=== PATIENT | male | born 1940 | race Caucasian/White ===

== ENCOUNTER 2022-03-15 10:35 | Observation (INO) ==
[~2022-03-15 10:35] MED LIST: ASPIRIN 325 MG TABLET PO ONE; DEXTROSE 5% NACL 0.45% 1,000 ML IV SCH; DIAZEPAM 5 MG TABLET PO ONE; MAGNESIUM SULF RIDER 2 GM/50 ML PREMIX IV PRN; POTASSIUM CHLORIDE RIDER 10 MEQ/100 ML PREMIX IV PRN; diphenhydrAMINE CAP 50 MG CAPSULE PO ONE
[2022-03-15 11:11] VITALS: BP 115/78
[2022-03-15] MEDS ORDERED: ALUMINUM/MAGNES/SIMETH MAX STR 30 ML UDCUP PO PRN (12:12)
[2022-03-15] MEDS ORDERED: MORPHINE 2 MG/1 ML SYRINGE IV PRN (12:12)
[2022-03-15] MEDS ORDERED: diphenhydrAMINE CAP 25 MG CAPSULE PO PRN (12:12)
[2022-03-15] MEDS ORDERED: MAGNESIUM SULF RIDER 4 GM/100 ML PREMIX IV PRN (12:12)
[2022-03-15] MEDS ORDERED: MAGNESIUM SULF RIDER 2 GM/50 ML PREMIX IV PRN (12:12)
[2022-03-15] MEDS ORDERED: DOCUSATE SODIUM 100 MG CAPSULE PO PRN (12:12)
[2022-03-15] MEDS ORDERED: PROMETHAZINE 25 MG TABLET PO PRN (12:12)
[2022-03-15] MEDS ORDERED: NICOTINE 21 MG/24 HR PATCH TRANSDERM PRN (12:12)
[2022-03-15] MEDS ORDERED: guaiFENesin/DM ER 600-30 MG TABLET PO PRN (12:12)
[2022-03-15] MEDS ORDERED: POTASSIUM CHLORIDE 20 MEQ TABLET PO PRN (12:12)
[2022-03-15] MEDS ORDERED: hydrALAZINE 20 MG/1 ML VIAL IV PRN (12:12)
[2022-03-15] MEDS ORDERED: ZALEPLON 5 MG CAPSULE PO PRN (12:12)
[2022-03-15] MEDS ORDERED: ONDANSETRON 4 MG/2 ML VIAL IV PRN (12:12)
[2022-03-15] MEDS ORDERED: ACETAMINOPHEN 325 MG TABLET PO PRN (12:12)
[2022-03-15] MEDS ORDERED: ALBUTEROL/IPRATROPIUM 3 ML NEB RESP TX PRN (12:40)
[2022-03-15] MEDS ORDERED: NITROGLYCERIN SL 0.4 MG TABLET SL PRN (12:41)
[2022-03-15 13:08] LABS: Basophils # 0.1 10*3/uL (0.0-0.2); Basophils % 0.8 % (0.0-0.8); Eosinophils # 0.1 10*3/uL (0.0-0.87); Eosinophils % 1.4 % (0.00-10.9); Hematocrit 43.5 VOL% (42.0-52.0); Hemoglobin 14.2 GM/DL (14.0-18.0); Immature Granulocytes % 0.3 %; Immature Granulocytes Absolute 0.02 #; Lymphocytes # 1.1 10*3/uL (1.4-4.0); Lymphocytes % 15.8 % (21.2-54.2); Mean Corpuscular HGB Conc 32.6 GM/DL (32-36); Mean Corpuscular Volume 86.1 FL (87-102); Mean Platelet Volume 10.6 FL (9.6-12.0); Monocytes # 0.5 10*3/uL (0.11-0.8); Monocytes % 6.3 % (1.7-12.7); Neutrophils % 75.4 % (38.7-73.9); Platelet Count 234 T/CUMM (130-400); Red Blood Count 5.05 MC/CUMM (3.8-5.5); Red Cell Distribution Width 14.3 % (9.3-17.3); White Blood Count 7.2 T/CUMM (4-12)
[2022-03-15 13:32] LABS: Albumin 3.3 G/DL (3.4-5.0); Bilirubin,Total 1.3 MG/DL (0.20-1.00); Calcium 8.6 MG/DL (8.5-10.1); Osmolality,Calculated 289.3 MOS/KG (273-304); Potassium 4.5 MMOL/L (3.5-5.1); Total Protein 6.6 G/DL (6.4-8.2)
[2022-03-15 13:59] LABS: Arterial Base Excess iSTAT -3 MMOL/L (-2.5-2.5); Arterial Bicarbonate iSTAT 20.2 MMOL/L (20-26); Arterial O2 Saturation iSTAT 95 % (95-100); Arterial PCO2 iSTAT 31 MM HG (35-48); Arterial PO2 iSTAT 72 MM HG (80-95); Arterial Total CO2 iSTAT 21 MMO/L (23-27); Arterial pH iSTAT 7.421 (7.35-7.45)
[2022-03-15] MEDS ORDERED: LEVOFLOXACIN INJ 750 MG/150 ML PREMIX IV SCH (15:00)
[2022-03-15] MEDS: FUROSEMIDE 40 MG/4 ML VIAL IV SCH (15:00)
[2022-03-15] MEDS ORDERED: RIVAROXABAN 10 MG TABLET PO SCH (17:00)
[2022-03-16 04:38] LABS: Basophils # 0.1 10*3/uL (0.0-0.2); Basophils % 0.7 % (0.0-0.8); Eosinophils # 0.3 10*3/uL (0.0-0.87); Eosinophils % 3.6 % (0.00-10.9); Hematocrit 42.6 VOL% (42.0-52.0); Hemoglobin 13.9 GM/DL (14.0-18.0); Immature Granulocytes % 0.2 %; Immature Granulocytes Absolute 0.02 #; Lymphocytes # 1.8 10*3/uL (1.4-4.0); Lymphocytes % 21.4 % (21.2-54.2); Mean Corpuscular HGB Conc 32.6 GM/DL (32-36); Mean Corpuscular Volume 85.7 FL (87-102); Mean Platelet Volume 10.9 FL (9.6-12.0); Monocytes # 0.8 10*3/uL (0.11-0.8); Monocytes % 9.7 % (1.7-12.7); Neutrophils % 64.4 % (38.7-73.9); Platelet Count 219 T/CUMM (130-400); Red Blood Count 4.97 MC/CUMM (3.8-5.5); Red Cell Distribution Width 14.2 % (9.3-17.3); White Blood Count 8.3 T/CUMM (4-12)
[2022-03-16 04:59] LABS: Albumin 3.1 G/DL (3.4-5.0); Bilirubin,Total 0.9 MG/DL (0.20-1.00); Calcium 8.7 MG/DL (8.5-10.1); Osmolality,Calculated 284.4 MOS/KG (273-304); Potassium 3.9 MMOL/L (3.5-5.1); Risk Ratio 2.62; Total Protein 6.9 G/DL (6.4-8.2); VLDL Cholesterol 12.2 MG/DL
[2022-03-16 05:51] LABS: Arterial Base Excess iSTAT -1 MMOL/L (-2.5-2.5); Arterial Bicarbonate iSTAT 22.9 MMOL/L (20-26); Arterial O2 Saturation iSTAT 94 % (95-100); Arterial PCO2 iSTAT 35 MM HG (35-48); Arterial PO2 iSTAT 67 MM HG (80-95); Arterial Total CO2 iSTAT 24 MMO/L (23-27)
[2022-03-16] MEDS: FUROSEMIDE 40 MG/4 ML VIAL IV SCH ×2 (08:00→15:52)
[2022-03-16] MEDS ORDERED: HEPARIN/NACL 0.9% 2 UNITS/ML 2,000 UNIT/1,000 ML BAG IV ONE (08:41)
[2022-03-16] MEDS ORDERED: fentaNYL 100 MCG/2 ML VIAL ONE (09:00)
[2022-03-16] MEDS ORDERED: amLODIPine 5 MG TABLET PO SCH (09:00)
[2022-03-16] MEDS ORDERED: MIDAZOLAM 2 MG/2 ML VIAL ONE (09:00)
[2022-03-16] MEDS ORDERED: ATORVASTATIN 20 MG TABLET PO SCH (09:00)
[2022-03-16] MEDS ORDERED: ASPIRIN EC 81 MG TABLET PO SCH (09:00)
[2022-03-16] MEDS ORDERED: PANTOPRAZOLE 40 MG TABLET PO SCH (09:00)
[2022-03-16] MEDS ORDERED: SODIUM CHLORIDE 0.9% 1,000 ML IV SCH (10:30)
[2022-03-17] MEDS ORDERED: lisinopriL 2.5 MG TABLET PO SCH (09:00)
[2022-03-17] MEDS ORDERED: ENOXAPARIN 40 MG/0.4 ML SYRINGE SUBCUT SCH (09:00)
== END 2022-03-16 16:40 | disposition hospice, home (50) ==
LOC: N.CC 10:35 → N.CL 10:37 → N.CC 14:29
PROVIDERS: ADMIT Internal Medicine Interventional Cardiology; ATTEND Internal Medicine Interventional Cardiology